=== PATIENT | male | born 1975 | race Caucasian/White ===

== ENCOUNTER → 2024-03-11 14:57 | Outpatient (REF) | payer BC, SELFPAY | LOC: HWRAD 14:57 | PROVIDERS: FAMILY PHYSICIAN Family Medicine | DX: N23 Unspecified renal colic (principal); R10.9 Unspecified abdominal pain; R10.821 Right upper quadrant rebound abdominal tenderness | CPT/HCPCS: 74178; Q9967 ==

== ENCOUNTER → 2024-11-25 07:09 | Outpatient (REF) | payer BC, SELFPAY | LOC: MRI 07:09 | PROVIDERS: ATTENDING PHYSICIAN Family Medicine Sports Medicine; FAMILY PHYSICIAN Family Medicine | DX: S46.212A Strain of muscle, fascia and tendon of other parts of biceps, left arm, initial encounter (principal) | CPT/HCPCS: 73221 ==